=== PATIENT | female | born 1980 | race Native Hawaiian/Other Pacific Islander ===

== ENCOUNTER 2016-12-11 09:42 | Outpatient (CLI) | payer OTHER ==
[~2016-12-11 09:42] MED LIST: ACETAMINOPHEN325 MG PO; ALPRAZOLAM0.5 MG PO; ATORVASTATIN CA40 MG PO; BIOTIN5000 MCG PO; CALCIUM CITRAT250 MG PO; MULTIPLE VITAMIN PO; OMEPRAZOLE20 M1 PO; PERCOCET1 TA1 PO; PROAIR HFA IN; VISTARIL50 MG PO; VITAMIN B12100 MCG; VITAMIN D-31000 UNIT PO; ZYRTEC ALLERGY10 MG PO
== END 2016-12-11 23:00 ==
LOC: MRI SRH 09:42
DX: M75.102 Unspecified rotator cuff tear or rupture of left shoulder, not specified as traumatic (principal)

== ENCOUNTER 2017-01-02 13:26 | Outpatient (CLI) | payer OTHER ==
--- NOTE | 2017-01-02 18:17 | DIAGNOSTIC IMAGING REPORT ---
PROCEDURE: MR UPPER EXT JOINT W/CONT-LT INDICATION: LT SHOULDER ROTATOR CUFF SYNDROME TECHNIQUE: Axial T1, T1 fat sat, gradient echo, coronal proton density, proton density fat sat, T1 fat sat, sagittal proton density, proton density fat sat, and T1 fat sat sequences were obtained through the left shoulder following uncomplicated administration of intra-articular gadolinium earlier the same day. COMPARISON: 04/12/2015 FINDINGS: Rotator cuff: Supraspinatus and infraspinatus tendons are intact. Mild intrinsic intermediate signal in the supraspinatus tendon. Trace edema in the subacromial bursa but no evidence of bursal contrast. The subscapularis is intact. Transverse humeral ligament is identified. Biceps tendon: There has been interval biceps tenotomy. The intra-articular portion of the biceps tendon is not seen. There is strandy irregularity and wispy intermediate signal in the region of the rotator interval structures proximally. The extra-articular tendon reconstitutes distally. Osseous structures and articular surfaces: Type 2 acromion. Moderate degenerative hypertrophy at the acromioclavicular joint. Trace lateral undersurface irregularity of the lateral acromion. The glenohumeral joint is normally positioned. No significant chondromalacia. Normal marrow signal. Labral ligamentous complex: The superior labrum is diminutive. No discrete tear. Anterior and posterior labrum appears intact. Middle and inferior glenohumeral ligaments are intact. Fluid, soft tissues, and joint space: Iatrogenic glenohumeral joint effusion. No significant synovial thickening. The inferior capsule is intact. No paralabral cysts or spinoglenoid notch cysts. Musculature is normal in bulk and signal. Neurovascular bundle is normal. IMPRESSION: 1. Mild supraspinatus tendonitis with trace subacromial bursitis. 2. Interval biceps tenotomy. 3. Diminutive superior labrum without tear. 4. There is less acromial impingement compared to the prior study but there is persistent subtle undersurface irregularity despite prior acromioplasty. Degenerative hypertrophy at the AC joint is not appear to impinge.
--- NOTE | 2017-01-02 18:21 | DIAGNOSTIC IMAGING REPORT ---
PROCEDURE: XR SHOULDER INJECTION (PRE MR) INDICATION: LT SHOULDER ROTATOR CUFF SYNDROME TECHNIQUE: Written informed consent was obtained from the patient prior to the procedure. Risks discussed included but were not limited to bleeding, infection, injury to adjacent structures, pain, and allergic reaction. It was agreed to proceed. Slight LPO position on the fluoroscopy table. Preliminary fluoroscopic imaging demonstrated no suspicious calcification or significant degeneration. An appropriate skin entry site was chosen and marked. The skin was prepped and draped in the usual sterile fashion. Skin and subcutaneous tissue was anesthetized thoroughly with 1% lidocaine. Under intermittent fluoroscopic guidance, a 22 gauge needle was directed into the superomedial left glenohumeral joint. Through this, a mixture of contrast and anesthetic was injected (5 ml Isovue 200, 2 ml 1% Xylocaine, 2 ml 0.5% bupivacaine, and 0.1 ml gadolinium). Five fluoroscopic images were acquired documenting the needle in position within the joint and post joint filling. The needle was removed, hemostasis was achieved, the skin was cleansed, and a sterile bandage was applied. The patient was helped off the table. The patient was sent to MRI with standard post procedure instructions. She tolerated the procedure well and there were no immediate complications. COMPARISON: 04/12/2015 FINDINGS: Intra-articular position confirmed. No visualized rotator cuff tear. Intrarticular biceps tendon shadow not seen. IMPRESSION: 1. Successful pre MRI left glenohumeral joint arthrogram.
== END 2017-01-02 23:00 ==
LOC: XR SRH 13:26
PROC: BP191ZZ Fluoroscopy of Left Shoulder using Low Osmolar Contrast (ICD-10-PCS; principal; 2017-01-02)
DX: S43.432A Superior glenoid labrum lesion of left shoulder, initial encounter (principal); M75.102 Unspecified rotator cuff tear or rupture of left shoulder, not specified as traumatic; M75.52 Bursitis of left shoulder

== ENCOUNTER 2017-03-21 13:53 | Outpatient (CLI) | payer OTHER ==
--- NOTE | 2017-03-21 16:01 | DIAGNOSTIC IMAGING REPORT ---
PROCEDURE: US COMPLETE PELVIC W/TRANSVAG INDICATION: MENORRHAGIA TECHNIQUE: Transabdominal and endovaginal mendosa scale and color Doppler sonographic images of the female pelvis were obtained. COMPARISON: Pelvic ultrasound 01/28/2012. FINDINGS: TRANSABDOMINAL SCANS: Anteverted uterus. Lower pole of the right kidney not well visualized. Normal left kidney. TRANSVAGINAL SCANS: Nabothian cysts. The uterus measures 8.5 x 4.8 x 4.7 cm. Endometrium measures 7 mm with a small of fluid in the endometrial canal (3 mm). Right ovary measures 2.5 x 2.6 x 2.1 cm with a 2 cm corpus luteum cyst. Left ovary measures 2.6 x 2.2 x 1.8 cm. There is vascular flow to both ovaries. No adnexal mass or free fluid in the cul-de-sac. IMPRESSION: 1. Small amount of fluid in the endometrial canal 2. Otherwise negative pelvic ultrasound
--- NOTE | 2017-03-21 17:31 | DIAGNOSTIC IMAGING REPORT ---
PROCEDURE: MG BILATERAL SCREENING W/CAD INDICATION: Screening, family history of mother with breast cancer TECHNIQUE: Standard CC and MLO views bilaterally. Computer aided detection was used. COMPARISON: None. FINDINGS: Mildly dense fibroglandular tissue is present bilaterally. There is a 5 mm ovoid focus of glandular tissue in the central left breast lateral to the nipple seen on the CC view only. No areas of architectural distortion, or suspicious microcalcifications. IMPRESSION: 1. 5 mm glandular focus in the central left breast on the CC view only. This is likely a focus of benign glandularity, although in the absence of comparison studies, further evaluation with spot compression, rolled CC views, direct lateral left mammogram, and ultrasound if indicated is recommended. 2. The patient will be contacted. RESULT CODE: 0- Incomplete; needs additional evaluation. A. A negative report should not delay biopsy if a dominant or clinically suspicious mass is present. 10-15% of cancers are not identified by x-ray. B. A negative report may reinforce clinical impression. C. Adenosis and dense breasts may obscure an underlying neoplasm. D. False positive reports average 6-10%. E.. A yearly screening mammogram is recommended. A reminder letter will be scheduled.
== END 2017-03-21 23:00 ==
LOC: US SRH 13:53
DX: N92.0 Excessive and frequent menstruation with regular cycle (principal); Z12.31 Encounter for screening mammogram for malignant neoplasm of breast; Z80.3 Family history of malignant neoplasm of breast

== ENCOUNTER 2017-04-09 13:50 | Outpatient (CLI) | payer OTHER ==
--- NOTE | 2017-04-09 15:03 | DIAGNOSTIC IMAGING REPORT ---
PROCEDURE: MG UNILATERAL DIAG-LT W/CAD INDICATION: Follow-up left breast nodule. TECHNIQUE: CC, MLO and true-lateral digital views of left breast. In addition, spot compression CC and MLO views were obtained of the lateral central left breast (region of clinical concern). Finally, high-resolution left breast ultrasound was performed (18 mHz). COMPARISON: Comparison made to screening mammogram on 03/21/2017. FINDINGS: MAMMOGRAM: Computer-aided detection applied. Normal parenchyma. No evidence of mass or nodule. BREAST ULTRASOUND: There are two small 2 mm cysts in the upper central lateral left breast which most likely account for the previously described nodule. IMPRESSION: 1. Minor cystic changes in the upper left breast. 2. Otherwise negative mammogram and left breast ultrasound. 3. Resume routine screening schedule (March 2018). 4. Findings discussed with the patient. RESULT CODE: 2- Benign finding(s). A. A negative report should not delay biopsy if a dominant or clinically suspicious mass is present. 10-15% of cancers are not identified by x-ray. B. A negative report may reinforce clinical impression. C. Adenosis and dense breasts may obscure an underlying neoplasm. D. False positive reports average 6-10%. E.. A yearly screening mammogram is recommended. A reminder letter will be scheduled.
== END 2017-04-09 23:00 ==
LOC: MAM SRH 13:50
DX: R92.2 Inconclusive mammogram (principal)